=== PATIENT | female | born 1955 | race Two or more races ===

== ENCOUNTER 2023-06-16 07:15 | Day surgery (SDC) | payer OTHER | END 2023-06-16 11:20 | disposition home or self-care (01) | LOC: AMB-ENDOS 07:15 | PROVIDERS: ATTEND Surgery | DX: D12.2 Benign neoplasm of ascending colon (principal); D12.5 Benign neoplasm of sigmoid colon; K63.5 Polyp of colon; K57.30 Diverticulosis of large intestine without perforation or abscess without bleeding; K64.8 Other hemorrhoids; Z91.041 Radiographic dye allergy status; Z20.822 Contact with and (suspected) exposure to COVID-19 ==